=== PATIENT | male | born 1990 | race Caucasian/White ===

== ENCOUNTER 2019-06-19 10:50 | Outpatient (CLI) | payer OTHER ==
--- NOTE | 2019-06-19 12:31 | MRI ---
MRI LUMBAR SPINE NONCONTRAST: HISTORY: Acute onset of low back pain with left-sided sciatica. COMPARISON: None. FINDINGS: Appropriate T1 marrow signal intensity of the lumbar vertebrae. Lumbar spine vertebral body height is maintained. No fracture. Straightening of lumbar lordosis may be due to patient position or muscle spasm. No significant STIR hyperintensity to suggest vertebral body edema or ligamentous injury. Visualized solid organs have appropriate signal intensity. Appropriate signal intensity of the visual ized paraspinal muscles. Conus medullaris terminates at the superior aspect of L1. T12-L1:Adequate disc hydration. No significant central canal stenosis or significant neural foraminal narrowing. L1-L2:Adequate disc hydration. No significant central canal stenosis or significant neural foraminal narrowing. L2-L3:Adequate disc hydration. No significant central canal stenosis or significant neural foraminal. L3-L4:Adequate disc hydration. Minimal contact upon the ventral thecal sac due to broad-based disc bu lge. No significant central canal stenosis or significant neural foraminal. L4-L5:Disc desiccation with mild loss of disc space height. Broad-based disc bulge with a central dis c herniation. Encroachment upon bilateral subarticular zones with partial obscuration of bilateral traversing L5 nerve roots. There is a small annular fissure in the left subarticular zone which abuts the traversing left L5 nerve root. Mild bilateral foraminal narrowing predominantly due to disc material. L5-S1:Disc desiccation with mild loss of disc space height. There is a central/left subarticular disc herniation. There is associated inferior disc extrusion. Disc material abuts but does not obscure the traversing right S1 nerve root. Minimal contact upon the ventral thecal sac without significant c entral canal stenosis. There is near complete obscuration the traversing left S1 nerve root secondary to left subareolar disc herniation and inferior disc extrusion. There may be some partial o bscuration of the traversing left S2 nerve root secondary to herniated disc material left subarticular zone. Mild right and moderate left foraminal narrowing predominantly due to disc materia l. IMPRESSION: 1. Disc desiccation at L4-L5 and L5-S1. 2. Annular fissure involving the left subarticular zone at L4-L5. Annular fissure abuts the traversin g left L5 nerve root. Partial obscuration the traversing left and right L5 nerve roots. 3. Left subarticular herniation with inferior disc extrusion at L5-S1. Near complete obscuration of t he traversing left S1 nerve root. Partial obscuration of the traversing left S2 nerve root. Moderate left foraminal narrowing at L5-S1. Transcribed Date/Time: 06/19/2019 12:42 PM
== END 2019-06-19 10:51 | disposition home or self-care (01) ==
LOC: TBSIIMAG 10:50
PROVIDERS: ATTEND Family Medicine
DX: M54.42 Lumbago with sciatica, left side (principal); M48.07 Spinal stenosis, lumbosacral region; M51.86 Other intervertebral disc disorders, lumbar region; M51.87 Other intervertebral disc disorders, lumbosacral region; M51.27 Other intervertebral disc displacement, lumbosacral region
CPT/HCPCS: 72148

== ENCOUNTER 2021-01-13 18:30 | Outpatient (CLI) | payer OTHER | END 2021-01-13 18:31 | disposition home or self-care (01) | LOC: SLEEPLAB 18:30 | PROVIDERS: ATTEND Family Medicine | DX: G47.33 Obstructive sleep apnea (adult) (pediatric) (principal); G47.00 Insomnia, unspecified; R51.9 Headache, unspecified; R06.83 Snoring; E66.9 Obesity, unspecified; Z68.37 Body mass index [BMI] 37.0-37.9, adult | CPT/HCPCS: 95806 ==

== ENCOUNTER 2021-01-19 08:30 | Outpatient (CLI) | payer OTHER ==
[2021-01-19 10:11] LABS: Hemoglobin 15.2 g/dL (13.5-17.5); Mean Corpuscular HGB CONC 33.1 g/dL (32.0-36.0); Mean Corpuscular Hemoglobin 30.6 pg (27.0-33.0); Mean Corpuscular Volume 92.4 fl (81.2-95.1); Mean Platelet Volume 10.3 fl (7.4-10.4); Platelet Count 379 10x3/uL (150-450); RBC Distribution Width 12.2 % (11.5-14.5); Red Blood Cell (RBC) Count 4.97 10x6/uL (4.32-5.72)
[2021-01-19 10:28] LABS: Anion Gap 15 mmol/L (10-20); BUN (Urea Nitrogen) 12 mg/dL (8.9-20.6); Calc. Creatinine Clearance 0 mL/min (70-130); Calcium 9.5 mg/dL (7.8-10.44); Carbon Dioxide 20 mmol/L (22-29); Chloride 110 mmol/L (98-107); Glucose 95 mg/dL (70-105); Sodium 141 mmol/L (136-145)
[2021-01-19 14:22] LABS: Albumin (w/Testosterone Panel) 3.9 g/dL
[2021-01-19 14:43] LABS: Sex Hormone Binding Globulin 24.6 nmol/L (11-78); Testosterone, Free 73.6 pg/mL (47-244); Testosterone, Total 301.6 ng/dL (240-871)
[2021-01-19 20:13] LABS: SARS-CoV-2 PCR by NAA Not Detected (NotDetected)
== END 2021-01-19 08:31 | disposition home or self-care (01) ==
LOC: LABBT 08:30
PROVIDERS: ATTEND Urology
DX: Z01.812 Encounter for preprocedural laboratory examination (principal); D40.11 Neoplasm of uncertain behavior of right testis; Z20.822 Contact with and (suspected) exposure to COVID-19
CPT/HCPCS: 80048; 82105; 83615; 84270; 84403; 84702; 85027; U0003; U0005

== ENCOUNTER 2021-01-22 07:23 | Day surgery (SDC) | payer OTHER ==
[2021-01-21 12:52] VITALS: BMI 36.5
[2021-01-22] MEDS ORDERED: Bupivacaine 0.25% HCL 30 ML VIAL ONE (08:03)
[2021-01-22] MEDS ORDERED: SUGAMMADEX SODIUM 200 MG/2 ML VIAL ONE (08:41)
[2021-01-22] MEDS ORDERED: Fentanyl 100 MCG/2 ML VIAL ONE ×2 (08:41→10:10)
[2021-01-22] MEDS ORDERED: Ondansetron PF 4 MG/2 ML Vial ONE (09:00)
[2021-01-22] MEDS ORDERED: Dexamethasone 20 MG/5 ML VIAL ONE (09:00)
[2021-01-22] MEDS ORDERED: PROPOFOL 200 MG/20 ML VIAL ONE (09:00)
[2021-01-22] MEDS ORDERED: Lidocaine 1% PF 5 ML VIAL ONE (09:00)
[2021-01-22] MEDS ORDERED: Meperidine HCl/PF 25 MG/ML VIAL ONE (09:56)
== END 2021-01-22 12:00 | disposition home or self-care (01) ==
LOC: SDC 07:23
PROVIDERS: ATTEND Urology
PROC: 0VT90ZZ Resection of Right Testis, Open Approach (ICD-10-PCS; principal; 2021-01-22)
PROC: 0VTJ0ZZ Resection of Right Epididymis, Open Approach (ICD-10-PCS; principal; 2021-01-22)
PROC: 0VBF0ZZ Excision of Right Spermatic Cord, Open Approach (ICD-10-PCS; principal; 2021-01-22)
DX: D40.11 Neoplasm of uncertain behavior of right testis (principal); G43.909 Migraine, unspecified, not intractable, without status migrainosus; E66.9 Obesity, unspecified; Z68.36 Body mass index [BMI] 36.0-36.9, adult; Z87.891 Personal history of nicotine dependence; Z79.899 Other long term (current) drug therapy; Z88.1 Allergy status to other antibiotic agents; Z88.2 Allergy status to sulfonamides
CPT/HCPCS: 88305; 88309; 88313; 88331; 88341; 88342; J0690; J1100; J2175; J2405; J2704; J3010; S0020